=== PATIENT | female | born 1955 | race African-American/Black ===

== ENCOUNTER 2016-10-16 08:54 | Emergency (ER) | payer OTHER ==
[~2016-10-16] VITALS: Ht 160 cm; Wt 64.4 kg
[2016-10-16 10:04] LABS: HEMATOCRIT 42.2 % (36.0-48.0)
[2016-10-16 10:53] VITALS: BP 160/86
== END 2016-10-16 10:56 | disposition home or self-care (01) ==
LOC: ER 09:29
DX: L76.22 Postprocedural hemorrhage of skin and subcutaneous tissue following other procedure (principal); F12.10 Cannabis abuse, uncomplicated; F17.200 Nicotine dependence, unspecified, uncomplicated; Z98.890 Other specified postprocedural states
CPT/HCPCS: 36415; 85014; 85018; 99284; Z7610

== ENCOUNTER 2018-02-05 17:17 | Emergency (ER) | payer OTHER ==
[~2018-02-05] VITALS: Ht 160 cm; Wt 54.0 kg
[2018-02-05] MEDS ORDERED: DICL50TA9 MT (18:23)
[2018-02-05] MEDS ORDERED: IBUP-2029 MT (18:23)
[2018-02-05] MEDS ORDERED: CHOL200010 MT (18:23)
[2018-02-05 19:10] LABS: CHLORIDE 106 mEq/L (98-107); HEMATOCRIT. 30.4 % (36.0-48.0); HEMOGLOBIN. 10.1 g/dL (12.0-16.0); MEAN CORPUSCULAR HEMOGLOBIN 32.7 pg (28.0-32.0); MEAN CORPUSCULAR VOLUME 97.8 fL (81.0-99.0); MEAN PLATELET VOLUME 7.3 fl (7.4-10.4); PLATELET 341 x1000/uL (130-400); RED CELL DISTRIBUTION WIDTH 19.7 % (11.6-14.6)
[2018-02-05] MEDS ORDERED: MORPHINE SULFATE 10 MG/ML CPJ IM ONE (19:15)
[2018-02-05 20:39] LABS: NUCLEATED RED BLOOD CELLS 1 /100 WBC; PLATELET ESTIMATE NORMAL
[2018-02-05] MEDS ORDERED: HYDROCODONE/APAP 7.5/325MG 1 TAB TABLET PO ONE (21:00)
[2018-02-05 21:32] VITALS: BP 136/74
[2018-02-05 22:44] LABS: CLARITY URINE CLEAR (CLEAR); COLOR URINE YELLOW (YELLOW); KETONES URINE NEGATIVE (NEGATIVE); LEUKOCYTE ESTERASE URINE NEGATIVE (NEGATIVE); NITRITE URINE NEGATIVE (NEGATIVE); OCCULT BLOOD URINE NEGATIVE (NEGATIVE); PH URINE 5.5 (4.5-8.0); PROTEIN URINE NEGATIVE (NEGATIVE); SPECIFIC GRAVITY URINE 1.012 (1.005-1.030)
== END 2018-02-05 22:09 | disposition home or self-care (01) ==
LOC: ER 19:15
DX: C50.919 Malignant neoplasm of unspecified site of unspecified female breast (principal); C79.89 Secondary malignant neoplasm of other specified sites; G89.29 Other chronic pain; F12.10 Cannabis abuse, uncomplicated; F17.200 Nicotine dependence, unspecified, uncomplicated
CPT/HCPCS: 36415; 80053; 81003; 83690; 85025; 93970; 96372; 99285; J2270; Z7610